=== PATIENT | female | born 1955 | race Caucasian/White ===

== ENCOUNTER 2016-10-19 15:15 | Outpatient (CLI) | payer OTHER ==
--- NOTE | 2016-10-20 16:22 | Mammography Report ---
DIGITAL SCREENING MAMMOGRAM: 10/19/2016 CLINICAL INDICATION: A 61-year-old for screening, history of bilateral implants. TECHNIQUE: Routine CC and MLO projections were obtained of the breasts as well as bilateral implant displaced views. COMPARISON: 06/2015, 04/2009. FINDINGS: The breasts demonstrate scattered fibroglandular densities bilaterally. Bilateral subpect oral implants are stable. No suspicious masses, clustered microcalcifications, or regions of archite ctural distortion are identified. IMPRESSION: BENIGN FINDINGS. RECOMMENDATION: Routine annual screening unless otherwise clinically indicated. BI-RADS category 2, benign findings. STANDARD QUALIFYING STATEMENTS 1. This examination was reviewed with the aid of Computer-Aided Detection (CAD). 2. A negative or benign imaging report should not delay biopsy if clinically suspicious findings are present. Consider surgical consultation if warranted. More than 5% of cancers are not identified by i maging. 3. Dense breasts may obscure an underlying neoplasm. JOB #: [id number] EXT JOB #:[id number]
== END 2016-10-19 15:16 | disposition home or self-care (01) ==
LOC: DI 15:15
PROVIDERS: ATTEND Family Medicine
DX: Z12.31 Encounter for screening mammogram for malignant neoplasm of breast (principal); Z98.82 Breast implant status
CPT/HCPCS: 77067

== ENCOUNTER 2017-05-04 15:19 | Outpatient (CLI) | payer OTHER ==
[2017-05-04 13:02] LABS: BASOPHILS % (AUTO) 2.2 %; HCT - HEMATOCRIT 36.2 % (37.0-47.0); HGB - HEMOGLOBIN 11.6 g/dL (12.0-16.0); LYMPHOCYTES % (AUTO) 4.5 %; MEAN CORPUSCULAR HEMOGLOBIN 27.5 pg (27.0-31.0); MEAN PLATELET VOLUME 9.6 fL (7.9-10.8); MONOCYTES % (AUTO) 3.4 %; NEUTROPHILS % (AUTO) 88.9 %; RED BLOOD COUNT 4.21 10^6/uL (4.20-5.40); RED CELL DISTRIBUTION WIDTH 18.7 % (12.0-15.0); UNCORRECTED WHITE BLOOD COUNT 54.9 x10^3/uL
[2017-05-04 13:27] LABS: WHITE BLOOD COUNT 54.9 x10^3/uL (4.8-10.8)
[2017-05-04 13:29] LABS: ALBUMIN/GLOBULIN RATIO 1.6 (1.0-2.2); BILIRUBIN,TOTAL 0.3 mg/dL (0.2-1.0); BUN - BLOOD UREA NITROGEN 14 mg/dL (6-20); CARBON DIOXIDE - CO2 27 mmol/L (21-32); CHLORIDE 105 mmol/L (101-111); CHOL/HDL RATIO 3.2 (<4.4); CHOLESTEROL 193 mg/dL; CREATININE 0.8 mg/dL (0.4-1.0); GFR - MDRD 73 (>89); GLUCOSE 94 mg/dL (70-100); HDL CHOLESTEROL 60 mg/dL; LDL/HDL RATIO 1.8 (<4.4); POTASSIUM 4.1 mmol/L (3.5-5.0); SODIUM 139 mmol/L (135-145); TOTAL PROTEIN 6.9 g/dL (6.7-8.2); TRIGLYCERIDES 141 mg/dL; VLDL CHOLESTEROL 28 mg/dL
[2017-05-04 13:30] LABS: SLIDE SENT FOR PATH REVIEW? Indicated
[2017-05-04 13:35] LABS: BAND NEUTROPHILS % (MANUAL) 8 %; BASOPHILS % (MANUAL) 4 %; EOSINOPHILS % (MANUAL) 1 %; LYMPHOCYTES % (MANUAL) 6 %; NEUTROPHILS % (MANUAL) 69 %; TOTAL CELLS COUNTED 100
[2017-05-04 13:36] LABS: PLATELET MORPHOLOGY RARE GIANT PLATELETS (NORMAL)
[2017-05-04 13:37] LABS: NP AUTO DIFFERENTIAL? YES; NP MAN DIFFERENTIAL? NO
[2017-05-04 13:59] LABS: CBC SPECIMEN NUMBER 791603; PATHOLOGIST REVIEW ORDER PATH SLIDE REVIEW
[2017-05-05 14:08] LABS: PATH REVIEW COMPLETED PATH REVIEW COMPLETE
== END 2017-05-04 15:20 | disposition home or self-care (01) ==
LOC: LAB.WCP 15:19
PROVIDERS: ATTEND Family Medicine
DX: I10 Essential (primary) hypertension (principal); E03.9 Hypothyroidism, unspecified
CPT/HCPCS: 36415; 80053; 80061; 84443; 85025

== ENCOUNTER 2017-05-11 09:13 | Outpatient (CLI) | payer OTHER ==
[2017-05-11 14:37] LABS: BASOPHILS % (AUTO) 3.1 %; EOSINOPHILS % (AUTO) 1.1 %; HCT - HEMATOCRIT 35.9 % (37.0-47.0); HGB - HEMOGLOBIN 11.3 g/dL (12.0-16.0); LYMPHOCYTES % (AUTO) 4.6 %; MEAN CORPUSCULAR HEMOGLOBIN 27.5 pg (27.0-31.0); MEAN CORPUSCULAR HGB CONC 31.5 g/dL (32.0-36.0); MEAN CORPUSCULAR VOLUME 87.2 fL (81.0-99.0); MEAN PLATELET VOLUME 9.7 fL (7.9-10.8); MONOCYTES % (AUTO) 2.7 %; NEUTROPHILS % (AUTO) 88.5 %; RED BLOOD COUNT 4.12 10^6/uL (4.20-5.40); UNCORRECTED WHITE BLOOD COUNT 58.2 x10^3/uL
[2017-05-11 15:31] LABS: WHITE BLOOD COUNT 58.2 x10^3/uL (4.8-10.8)
[2017-05-11 21:26] LABS: BAND NEUTROPHILS % (MANUAL) 24 %; LYMPHOCYTES % (MANUAL) 12 %; NEUTROPHILS % (MANUAL) 41 %; TOTAL CELLS COUNTED 100
[2017-05-11 21:27] LABS: NP AUTO DIFFERENTIAL? YES; PLATELET ESTIMATE, MANUAL INCREASED (>450,000) (NORMAL); PLATELET MORPHOLOGY NORMAL APPEARANCE (NORMAL)
[2017-05-11 21:28] LABS: NP MAN DIFFERENTIAL? NO
== END 2017-05-11 09:14 | disposition home or self-care (01) ==
LOC: LAB.WCP 09:13
PROVIDERS: ATTEND Physician Assistant Medical
DX: D72.829 Elevated white blood cell count, unspecified (principal)
CPT/HCPCS: 36415; 85025

== ENCOUNTER 2017-07-06 20:02 | Outpatient (CLI) | payer OTHER ==
--- NOTE | 2017-07-07 10:03 | Ultrasound Report ---
LIMITED ABDOMINAL ULTRASOUND: 07/06/2017 CLINICAL INDICATION: Leukocytosis. TECHNIQUE: Real-time scanning was performed with route service representative static images obtained. FINDINGS: As requested, only imaging of the liver and spleen was performed. The liver measures 14.9 cm. Hepatic echotexture is normal. No intrahepatic biliary dilatation is present. The common bile duct measures 6 mm. Incidental note is made of cholelithiasis. The spleen measures 13.2 cm. An 1.1 cm hemangioma is noted posteriorly. IMPRESSION: INCIDENTAL SPLENIC HEMANGIOMA. INCIDENTAL CHOLELITHIASIS. TD: 07/07/2017 10:03
== END 2017-07-06 20:03 | disposition home or self-care (01) ==
LOC: DI 20:02
PROVIDERS: ATTEND Internal Medicine
DX: D72.829 Elevated white blood cell count, unspecified (principal)
CPT/HCPCS: 76705

== ENCOUNTER 2017-11-04 12:45 | Outpatient (CLI) | payer OTHER ==
--- NOTE | 2017-11-05 08:59 | Mammography Report ---
Procedure Date: 11/04/2017 Accession Number: [id number] / [id number] Procedure: [facility] - Screening Mammo Dig w/Implants CPT Code: FULL RESULT: EXAM: Screening Mammo Dig w/Implants DATE: 11/04/2017 1:23 PM CLINICAL HISTORY: SCREENING MAMMO TECHNIQUE: Bilateral CC and MLO projections with additional implant displaced views COMPARISON: 10/19/2016, 06/19/2015, and 06/18/15 FINDINGS: There are scattered fibroglandular densities. There is no dominant mass, architectural distortion, skin thickening, suspicious microcalcifications or interval change. The silicone breast implants are stable in appearance. IMPRESSION: Negative. BI-RADS 1. Suggest routine screening in 12 months.
== END 2017-11-04 12:46 | disposition home or self-care (01) ==
LOC: DI 12:45
PROVIDERS: ATTEND Family Medicine
DX: Z12.31 Encounter for screening mammogram for malignant neoplasm of breast (principal)
CPT/HCPCS: 77067

== ENCOUNTER 2017-11-17 14:16 | Emergency (ER) | payer OTHER ==
[2017-11-17 14:23] VITALS: BP 136/85
--- NOTE | 2017-11-17 15:31 | ED Physician Documentation ---
PD HPI LOWER EXT INJURY - Stated complaint Stated Complaint: LT ANKLE INJURY - Chief complaint Chief Complaint: Ext Problem - History obtained from History obtained from: Patient, Family - History of Present Illness PD HPI LOW EXT INJURY LOCATION: Left, Ankle Type of injury: Twist Where injury occurred: Street Timing - onset: Today Timing - duration: Minutes Timing - details: Abrupt onset, Still present Improved by: Rest, Immobilization Worsened by: Moving, Palpating Associated symptoms: Swelling Similar symptoms before: Has not had sx before Recently seen: Not recently seen - Additional information Additional information: 62-year-old female was walking and stepped off of a curb twisting her left ankle injuring the ankle at the talofibular area. She has some pain swelling and inability to bear weight. Review of Systems Constitutional: denies: Fever Eyes: denies: Decreased vision Ears: denies: Ear pain Nose: denies: Congestion Throat: denies: Sore throat Respiratory: denies: Cough GI: denies: Vomiting PD PAST MEDICAL HISTORY - Past Medical History Past Medical History: Yes Cardiovascular: Hypertension Respiratory: None Endocrine/Autoimmune: HyPOthyroidism GI: None : None HEENT: None Psych: None Musculoskeletal: None Derm: None - Past Surgical History General: Appendectomy /MEDICAL ENGINEER: Breast implants HEENT: Tonsil/Adenoidectomy - Present Medications Home Medications: Ambulatory Orders Medication Instructions Recorded Confirmed Duloxetine HCl [Cymbalta] 60 mg PO DAILY 07/03/15 11/10/17 Glucosamine/D3/Boswellia Annmarie 2 each PO DAILY 07/03/15 11/10/17 [Glucosamine Daily Complex Tab] Levothyroxine Sodium 75 mcg PO DAILY 07/03/15 11/10/17 Loratadine 10 mg PO DAILY 07/03/15 11/10/17 Melatonin [Vitajoy] 5 mg PO DAILY 07/03/15 11/10/17 Naproxen Sodium 275 mg PO DAILY PRN 07/03/15 11/10/17 Ramipril [Altace] 10 mg PO DAILY 07/03/15 11/10/17 Fluticasone [Flonase] 2 sprays INH DAILY 06/02/17 11/10/17 Zolmitriptan [Zomig] 5 mg PO DAILY PRN 06/02/17 11/10/17 Imatinib Mesylate [Gleevec] 400 mg PO DAILY #30 tablet 08/20/17 11/10/17 - Allergies Allergies/Adverse Reactions: Allergies Allergy/AdvReac Type Severity Reaction Status Date / Time allopurinol Allergy Rash Verified 07/15/17 13:59 codeine Allergy Rash Verified 07/04/15 07:43 doxycycline Allergy Rash Verified 07/04/15 07:43 hydrocodone bitartrate * Allergy Rash Verified 07/04/15 07:43 [From Vicodin] - Social History Does the pt smoke?: No Smoking Status: Never smoker PD ED PE NORMAL - Vitals Vital signs reviewed: Yes (hypertensive ) - General General: Alert and oriented X 3, No acute distress, Well developed/nourished - HEENT HEENT: Atraumatic, PERRL - Respiratory Respiratory: No respiratory distress - Derm Derm: Normal color, Warm and dry, No rash - Extremities Extremities: No deformity, Other (There is swelling and point tenderness to the talofibular ligament on the right side there is no tenderness to the proximal 5th. ) - Neuro Neuro: Alert and oriented X 3, marketing content coordinator 2-12 intact, No motor deficit, No sensory deficit, Normal speech Eye Opening: Spontaneous Motor: Obeys Commands Verbal: Oriented GCS Score: 15 - Psych Psych: Normal mood, Normal affect Results - Vitals Vitals: Vital Signs - 24 hr 11/17/17 14:20 Temperature 36.3 C L Heart Rate 79 Respiratory 16 Rate Blood Pressure 136/85 H O2 Saturation 100 Oxygen O2 Source Room air - Rads (name of study) left ankle Radiology: Prelim report reviewed (Impression 1. Small calcific density inferior to lateral malleolus on the frontal view of uncertain significance/ chronicity. Otherwise no findings to suggest acute fracture.), EMP read indepedently, See rad report PD MEDICAL DECISION MAKING - ED course Complexity details: reviewed results, re-evaluated patient, considered differential, d/w patient, d/w family ED course: 62-year-old female with a sprain of the left ankle has some swelling over the talofibular ligament and x-ray without evidence of fracture. She is placed into an ankle stirrup. - Sepsis Event Vital Signs: Vital Signs - 24 hr 11/17/17 14:20 Temperature 36.3 C L Heart Rate 79 Respiratory 16 Rate Blood Pressure 136/85 H O2 Saturation 100 Oxygen O2 Source Room air Departure - Departure Disposition: 01 Home, Self Care Clinical Impression: Ankle sprain Qualifiers: Encounter type: initial encounter Involved ligament of ankle: calcaneofibular ligament Laterality: left Qualified Code(s): S93.412A - Sprain of calcaneofibular ligament of left ankle, initial encounter Instructions: ED Sprain Ankle W X Ray Follow-Up: Freida Arriola DO [Primary Care Provider] -
--- NOTE | 2017-11-17 15:40 | XRAY Report ---
Procedure Date: 11/17/2017 Accession Number: [id number] / [id number] Procedure: XR - Ankle 3 View LT CPT Code: FULL RESULT: EXAM: LEFT ANKLE RADIOGRAPHY EXAM DATE: 11/17/2017 03:17 PM. CLINICAL HISTORY: Twist talo-fibular pain. COMPARISON: None. TECHNIQUE: 3 views. FINDINGS: Bones: Small calcific density is seen inferior to the lateral malleolus only on frontal view of uncertain significance/chronicity. Otherwise, no findings to suggest acute fracture. Joints: No large effusion. The ankle mortise is normally aligned. Soft Tissues: Likely mild soft tissue swelling. IMPRESSION: 1. Small calcific density inferior to lateral malleolus on the frontal view of uncertain significance/chronicity. 2. Otherwise no findings to suggest acute fracture. RADIA
== END 2017-11-17 16:32 | disposition home or self-care (01) ==
LOC: ED 14:16
DX: S93.412A Sprain of calcaneofibular ligament of left ankle, initial encounter (principal); X50.9XXA Other and unspecified overexertion or strenuous movements or postures, initial encounter; Y93.01 Activity, walking, marching and hiking; Y92.410 Unspecified street and highway as the place of occurrence of the external cause; I10 Essential (primary) hypertension; E78.00 Pure hypercholesterolemia, unspecified
CPT/HCPCS: 99283

== ENCOUNTER 2018-01-12 09:05 | Outpatient (CLI) | payer SELFPAY | END 2018-01-12 09:06 | disposition home or self-care (01) | LOC: LAB 09:05 | PROVIDERS: ATTEND Internal Medicine | DX: Z01.89 Encounter for other specified special examinations (principal) | CPT/HCPCS: 36415 ==

== ENCOUNTER 2018-07-21 10:40 | Outpatient (CLI) | payer OTHER ==
[2018-07-21 19:04] LABS: BASOPHILS % (AUTO) 1.1 %; EOSINOPHILS # (AUTO) 0.2 10^3/uL (0.0-0.7); EOSINOPHILS % (AUTO) 5.2 %; HGB - HEMOGLOBIN 11.4 g/dL (12.0-16.0); LYMPHOCYTES # (AUTO) 0.7 10^3/uL (1.5-3.5); LYMPHOCYTES % (AUTO) 16.8 %; MEAN CORPUSCULAR HEMOGLOBIN 31.5 pg (27.0-31.0); MEAN CORPUSCULAR HGB CONC 32.2 g/dL (32.0-36.0); MEAN CORPUSCULAR VOLUME 97.8 fL (81.0-99.0); MEAN PLATELET VOLUME 9.4 fL (7.9-10.8); MONOCYTES # (AUTO) 0.3 10^3/uL (0.0-1.0); MONOCYTES % (AUTO) 6.3 %; NEUTROPHILS # (AUTO) 3.1 10^3/uL (1.5-6.6); NEUTROPHILS % (AUTO) 70.6 %; PLT - PLATELET COUNT 165 10^3/uL (130-450); RED CELL DISTRIBUTION WIDTH 16.3 % (12.0-15.0); WHITE BLOOD COUNT 4.5 x10^3/uL (4.8-10.8)
[2018-07-21 19:22] LABS: ALBUMIN 3.9 g/dL (3.2-5.5); ALBUMIN/GLOBULIN RATIO 1.8 (1.0-2.2); ALKALINE PHOSPHATASE 71 IU/L (42-121); ALT ALANINE AMINOTRANSFERASE 19 IU/L (10-60); AST ASPARTATE AMINOTRANSFERASE 25 IU/L (10-42); BILIRUBIN,TOTAL 0.5 mg/dL (0.2-1.0); BUN - BLOOD UREA NITROGEN 14 mg/dL (6-20); CALCIUM 8.6 mg/dL (8.5-10.3); CARBON DIOXIDE - CO2 29 mmol/L (21-32); CHLORIDE 103 mmol/L (101-111); CHOLESTEROL 154 mg/dL; CREATININE 0.8 mg/dL (0.4-1.0); GFR - MDRD 73 (>89); GLUCOSE 99 mg/dL (70-100); HDL CHOLESTEROL 77 mg/dL; LDL CHOLESTEROL,CALCULATED 64 mg/dL; LDL/HDL RATIO 0.8 (<4.4); SODIUM 141 mmol/L (135-145); TOTAL PROTEIN 6.1 g/dL (6.7-8.2); VLDL CHOLESTEROL 13 mg/dL
== END 2018-07-21 10:41 | disposition home or self-care (01) ==
LOC: LAB.WCP 10:40
PROVIDERS: ATTEND Family Medicine
DX: I10 Essential (primary) hypertension (principal); E03.9 Hypothyroidism, unspecified; Z13.220 Encounter for screening for lipoid disorders
CPT/HCPCS: 36415; 80053; 80061; 83721; 84443; 85025

== ENCOUNTER 2018-09-28 08:53 | Outpatient (CLI) | payer OTHER ==
--- NOTE | 2018-09-28 09:15 | XRAY Report ---
Reason: SHOULDER PAIN,LEFT Procedure Date: 09/28/2018 Accession Number: [id number] / [id number] Procedure: [facility] - Shoulder 2 View LT CPT Code: FULL RESULT: EXAM: LEFT SHOULDER RADIOGRAPHY EXAM DATE: 09/28/2018 09:03 AM. CLINICAL HISTORY: Shoulder pain, left. Fall onto left shoulder 5 days ago. COMPARISON: None. TECHNIQUE: 2 views. FINDINGS: Bones: Normal. No fracture or bone lesion. Joints: The glenohumeral and acromioclavicular joints are normal. Soft tissues: The visualized hemithorax is unremarkable. No soft tissue swelling. IMPRESSION: Normal shoulder radiography. RADIA
== END 2018-09-28 08:54 | disposition home or self-care (01) ==
LOC: DI.WCP 08:53
PROVIDERS: ATTEND Family Medicine
DX: M25.512 Pain in left shoulder (principal)

== ENCOUNTER 2018-10-25 14:04 | Outpatient (CLI) | payer OTHER ==
--- NOTE | 2018-10-25 15:08 | XRAY Report ---
Reason: SHOULDER PAIN,LEFT Procedure Date: 10/25/2018 Accession Number: [id number] / [id number] Procedure: [facility] - Shoulder 2 View LT CPT Code: FULL RESULT: EXAM: LEFT SHOULDER RADIOGRAPHY EXAM DATE: 10/25/2018 01:59 PM. CLINICAL HISTORY: Left shoulder pain. Recent fall. COMPARISON: SHOULDER 2 VIEW LT 09/28/2018 8:49 AM. TECHNIQUE: 3 views. FINDINGS: Bones: Normal. No fracture or bone lesion. Joints: The glenohumeral and acromioclavicular joints are normal. Soft tissues: The visualized hemithorax is unremarkable. No soft tissue swelling. IMPRESSION: Normal examination. No significant change. RADIA
== END 2018-10-25 14:05 | disposition home or self-care (01) ==
LOC: DI.WCP 14:04
PROVIDERS: ATTEND Family Medicine
DX: M25.512 Pain in left shoulder (principal)

== ENCOUNTER 2020-02-07 10:23 | Outpatient (CLI) | payer OTHER ==
--- NOTE | 2020-02-08 13:39 | Mammography Report ---
BILATERAL DIGITAL SCREENING MAMMOGRAM 3D/2D WITH AUGMENTATION: 02/07/2020 CLINICAL: Routine screening. Comparison is made to exams dated: 11/04/2017 mammogram, 10/19/2016 mammogram, and 06/18/2015 mammogram - [facility]. There are scattered fibroglandular elements in both breasts. No significant masses, calcifications, or other findings are seen in either breast. There has been no significant interval change. IMPRESSION: NEGATIVE There is no mammographic evidence of malignancy. A 1 year screening mammogram is recommended. This exam was interpreted at Station ID: [id number]. NOTE: For mammograms, a report in lay terms will be sent to the patient. Approximately 15% of breast malignancies will not be visualized mammographically. In the management of a palpable breast mass, a negative mammogram must not discourage biopsy of a clinically suspicious lesion. Electronically Signed By: Timur Kellogg M.D. ddp/penrad:02/07/2020 13:55:52 ACR BI-RADS Category 1: Negative 3341F PARENCHYMAL PATTERN: (A) - The breast(s) demonstrate(s) scattered fibroglandular densities. BI-RADS CATEGORY: (1) - 1 RECOMMENDATION: (ANNUAL) - Recommend routine annual screening mammography. [id number] 1 year screening LATERALITY: (B)
== END 2020-02-07 10:24 | disposition home or self-care (01) ==
LOC: DI.N 10:23
DX: Z12.31 Encounter for screening mammogram for malignant neoplasm of breast (principal)
CPT/HCPCS: 77063; 77067

== ENCOUNTER 2021-04-04 13:03 | Outpatient (CLI) | payer OTHER ==
--- NOTE | 2021-04-07 15:27 | Mammography Report ---
BILATERAL DIGITAL SCREENING MAMMOGRAM 3D/2D WITH AUGMENTATION: 04/04/2021 CLINICAL: Routine screening. Comparison is made to exams dated: 02/07/2020 mammogram, 11/04/2017 mammogram, and 10/19/2016 mammogram - [facility]. There are scattered fibroglandular elements in both breasts. Bilateral breast implants are stable. No significant masses, calcifications, or other findings are seen in either breast. There has been no significant interval change. IMPRESSION: NEGATIVE There is no mammographic evidence of malignancy. A 1 year screening mammogram is recommended. This exam was interpreted at Station ID: [id number]. NOTE: For mammograms, a report in lay terms will be sent to the patient. Approximately 15% of breast malignancies will not be visualized mammographically. In the management of a palpable breast mass, a negative mammogram must not discourage biopsy of a clinically suspicious lesion. Electronically Signed By: Kurt Pollock M.D. ar/penrad:04/04/2021 15:24:11 ACR BI-RADS Category 1: Negative 3341F PARENCHYMAL PATTERN: (A) - The breast(s) demonstrate(s) scattered fibroglandular densities. BI-RADS CATEGORY: (1) - 1 RECOMMENDATION: (ANNUAL) - Recommend routine annual screening mammography. [id number] 1 year screening LATERALITY: (B)
== END 2021-04-04 13:04 | disposition home or self-care (01) ==
LOC: DI 13:03
DX: Z12.31 Encounter for screening mammogram for malignant neoplasm of breast (principal)

== ENCOUNTER 2021-05-20 08:00 | Outpatient (CLI) | payer OTHER | END 2021-05-20 23:59 | LOC: LAB 08:00 | PROVIDERS: ATTEND Nurse Practitioner | DX: J06.9 Acute upper respiratory infection, unspecified (principal); Z20.822 Contact with and (suspected) exposure to COVID-19 ==

== ENCOUNTER 2023-04-23 12:50 | Outpatient (CLI) | payer OTHER ==
--- NOTE | 2023-04-23 14:13 | DEXA Report ---
PROCEDURE: Dexa Spine and/or Hip INDICATIONS: POST MENOPAUSAL TECHNIQUE: Dual energy x-ray absorptiometry (DXA) was performed on a Premise System. Regions measur ed are the AP Spine, femoral neck, and if needed forearm. COMPARISON: None FINDINGS: Lumbar Spine: Bone Mineral Density 1.409 g/cm/cm,T score 1.9. Left Femoral Neck: Bone Mineral Density 0.871 g/cm/cm, T score -1.2. Left Hip: Bone Mineral Density 0.809 g/cm/cm,T score -1.6. (T score greater or equal to -1.0: NORMAL) (T score from -1.1 to -2.4: OSTEOPENIA) (T score less than or equal to -2.5 to: OSTEOPOROSIS) Impression: By WHO criteria, this patient has low bone density (osteopenia). Patients with diagnosis of osteoporosis or osteopenia should have regular bone mineral density assess ment. For those eligible for Medicare, routine testing is allowed once every 2 years. Testing frequ ency can be increased for patients who have rapidly progressing disease or for those who are receivin g medical therapy to restore bone mass. Reviewed by: Jasper Zavala MD on 04/23/2023 2:12 PM PST Approved by: Jasper Zavala MD on 04/23/2023 2:12 PM PST Station ID: [id number]
== END 2023-04-23 12:51 | disposition home or self-care (01) ==
LOC: DI 12:50
PROVIDERS: ATTEND Physician Assistant
DX: Z78.0 Asymptomatic menopausal state (principal); M85.89 Other specified disorders of bone density and structure, multiple sites

== ENCOUNTER 2023-04-23 13:01 | Outpatient (CLI) | payer OTHER ==
--- NOTE | 2023-04-23 21:17 | XRAY Report ---
PROCEDURE: Hips 2V BILAT INDICATIONS: BILATERAL HIP PAIN TECHNIQUE: 2 view(s) of the hip were acquired. COMPARISON: None FINDINGS: Bones: No fractures or dislocations. No suspicious bony lesions. The visualized pelvic ring appear s intact. Mild bilateral hip joint space narrowing. Mild degenerative changes noted lower lumbar spi ne. Soft tissues: No suspicious soft tissue calcifications or masses. Moderate fecal debris in the colo n and rectum IMPRESSION: Mild degenerative changes. Moderate fecal debris. Reviewed by: Madan Miller MD on 04/23/2023 8:15 PM [place] Approved by: Madan Miller MD on 04/23/2023 8:15 PM [place] Station ID: [id number]
== END 2023-04-23 13:02 | disposition home or self-care (01) ==
LOC: DI 13:01
PROVIDERS: ATTEND Physician Assistant
DX: M16.0 Bilateral primary osteoarthritis of hip (principal); Z78.0 Asymptomatic menopausal state; M85.89 Other specified disorders of bone density and structure, multiple sites

== ENCOUNTER 2023-12-23 10:07 | Outpatient (CLI) | payer OTHER ==
--- NOTE | 2023-12-23 14:42 | XRAY Report ---
PROCEDURE: Knee 4+V LT INDICATIONS: LEFT KNEE PAIN TECHNIQUE: 4 views of the knee(s) were acquired. COMPARISON: None. FINDINGS: Bones: No fractures or dislocations. Osteoarthritic changes of the bilateral knees with osteophytosi s and mild medial compartment joint space narrowing bilaterally. Moderate joint space narrowing invol ving the left lateral patellofemoral compartment. No suspicious bony lesions. Soft tissues: Small knee joint effusion. No suspicious soft tissue calcifications or masses. IMPRESSION: 1.No acute bony abnormality. 2.Osteoarthritic changes of the bilateral knees, moderate on the left and mild on the right. Reviewed by: Jasper Zavala MD on 12/23/2023 2:41 PM PDT Approved by: Jasper Zavala MD on 12/23/2023 2:41 PM PDT Station ID: [id number]
== END 2023-12-23 10:08 | disposition home or self-care (01) ==
LOC: DI 10:07
PROVIDERS: ATTEND Physician Assistant
DX: M17.0 Bilateral primary osteoarthritis of knee (principal)